=== PATIENT | male | born 1965 | race African-American/Black ===

== ENCOUNTER 2017-05-26 22:12 | Emergency (ER) | payer SELFPAY ==
[~2017-05-26] VITALS: Ht 170.2 cm; Wt 77.1 kg
[2017-05-26 22:45] VITALS: BP 105/74
[2017-05-26] MEDS ORDERED: ACETAMINOPHEN 325 MG TAB PO ONE ×2 (22:49→23:00)
== END 2017-05-27 01:54 | disposition left against medical advice (07) ==
LOC: ER 22:12
DX: M79.1 Myalgia (principal); R05 Cough; R50.9 Fever, unspecified; Z53.21 Procedure and treatment not carried out due to patient leaving prior to being seen by health care provider
CPT/HCPCS: 71045